=== PATIENT | female | born 1950 | race Caucasian/White ===

== ENCOUNTER → 2018-03-03 | Day surgery (SDC) | payer MEDICARE ==
[2018-02-27 13:28] LABS: BASOPHILS % 0.6 % (0.0-1.0); EOSINOPHILS # (AUTO) 0.5 (0.0-0.4); EOSINOPHILS % 7.7 % (0.0-6.0); HEMATOCRIT 38.7 % (34.2-44.1); HEMOGLOBIN 12.6 g/dL (12.0-16.0); LYMPHOCYTES % 28.2 % (18.0-39.1); MEAN CORPUSCULAR HEMOGLOBIN 26.3 pg (28-32); MEAN CORPUSCULAR HGB CONC 32.6 g/dL (31-35); MEAN CORPUSCULAR VOLUME 80.8 fL (81-99); MONOCYTES # (AUTO) 0.5 (0.2-0.8); MONOCYTES % 7.4 % (4.4-11.3); NEUTROPHILS # (AUTO) 3.9 (2.1-6.9); NEUTROPHILS % 55.5 % (38.7-80.0); PLATELET COUNT 269 x10e3/uL (140-360); RED BLOOD COUNT 4.79 x10e6/uL (3.6-5.1); RED CELL DISTRIBUTION WIDTH 14.5 % (11.7-14.4)
[~2018-03-03] MED LIST: FENTANYL CITRATE/PF 100MCG/2 ML INJ ONE; GLIMEPIRIDE2 MG PO; GLUCAGON FOR INJ 1 MG VIAL ONE; HYOSCYAMINE SULFATE 0.5 MG/ML AMP ONE; LEVOTHYROXINE100 MC1 PO; LIDOCAINE HCL 1% 2 ML AMP ONE; LOSARTAN POTAS100 MG PO; METFORMIN HCL500 MG PO; METOCLOPRAMIDE HCL 10 MG/2ML VIAL ONE; MIDAZOLAM HCL 2 MG/2 ML VIAL ONE; OMEPRAZOLE40 MG PO; PANTOPRAZOLE 40 MG 10ML VIAL ONE; PROPOFOL IV EMULSION 10 MG/ML 20 ML VIAL ONE; PROPOFOL IV EMULSION 10 MG/ML 50 ML VIAL ONE
[2018-03-03 18:50] LABS: WBC,FECAL (FECAL LACTOFERRIN) NEGATIVE (NEGATIVE)
[2018-03-04 13:59] LABS: C DIFFICILE TOXIN A&B AMP PROB NEGATIVE (NEGATIVE)
--- NOTE | 2018-03-23 09:19 | Operative Report ---
DATE OF PROCEDURE: March 03, 2018 REFERRING PHYSICIAN: Dr. Juno Ron PROCEDURES PERFORMED 1. Esophagogastroduodenoscopy with biopsies. 2. Colonoscopy with polypectomy and biopsies. INDICATIONS FOR EGD: Heartburn, excessive belching, history of melena. INDICATIONS FOR COLONOSCOPY: Colorectal cancer screening. Personal history of colon polyps, diarrhea. MEDICATION: Patient was done under MAC. Please see anesthesiologist's note. PROCEDURE: With the patient in the left lateral decubitus position, the flexible fiberoptic Olympus gastroscope was introduced into the esophagus under direct visualization without any difficulty. There was some patchy erythema noted in the distal esophagus. The scope was then advanced with ease into the stomach, traversing a large hiatal hernia. Mucosa overlying the antrum and the body revealed some patchy erythema and low-grade to moderate edema, and biopsies were obtained and sent to stain for H. pylori. Several hyperplastic-appearing polyps were noted in the body of the stomach. Some were partially excised with cold biopsy forceps. The pylorus was of normal contour and shape. It was intubated with ease, and the scope was advanced all the way to the 2nd portion of the duodenum. The scope was then withdrawn slowly, and the mucosa overlying the proximal 2nd portion of the duodenum grossly appeared to be within normal limits. Biopsies were obtained to rule out sprue considering the patient's history of diarrhea. Mucosa overlying the duodenal bulb appeared to be within normal limits. The scope was then withdrawn back into the stomach and retroflexed. Mucosa overlying the fundus appeared to be within normal limits. The previously described hiatal hernia was also noted in the retroflexed position. The scope was then straightened out. The stomach was decompressed. The scope was subsequently withdrawn. Patient tolerated the procedure well. IMPRESSION 1. Distal esophagitis, mild. 2. Large hiatal hernia. 3. Gastritis, biopsied. Biopsies sent to stain for H. pylori. 4. Gastric polyps, multiple, some partially excised with cold biopsy forceps. 5. Rule out sprue. PLAN: Follow up histology. Initiate Protonix 40 mg 1 p.o. q.a.m. a.c. The patient was then turned around. After adequate lubrication of the anal canal, a flexible fiberoptic Olympus colonoscope was inserted into the rectum with ease and advanced all the way to the cecum. The mucosa overlying the cecum appeared to be within normal limits. The ileocecal valve was intubated, and the scope was advanced into the terminal ileum. Biopsies were obtained. The scope was then withdrawn back into the colon. Diverticular disease was scattered throughout but was more prominent in the sigmoid colon. Two polyps were hot biopsied from the ascending colon. The transverse grossly appeared to be within normal limits. There were some mild, patchy, inflammatory changes noted in the left colon. Multiple random biopsies were obtained. One polyp was hot biopsied from the sigmoid colon, and 2 polyps were hot biopsied from the rectum. The scope was then retroflexed into the distal rectum. Large internal hemorrhoids were noted, none of which was actively bleeding. The scope was then straightened out. It was subsequently withdrawn after securing an adequate stool specimen that was sent for the appropriate stool studies. Patient tolerated the procedure well. IMPRESSION 1. Diverticulosis more prominent in the sigmoid colon. 2. Ascending colon polyps times 2, hot biopsied. 3. Mild, patchy, left-sided colitis. 4. Sigmoid colon polyp, hot biopsied. 5. Rectal polyps times 2, hot biopsied. 6. Internal hemorrhoids, none actively bleeding. PLAN: Follow up histology. Follow up stool studies. Initiate hydrocortisone 25-mg suppositories b.i.d. times 10 days, then p.r.n.. Start VSL #3 one p.o. daily and Bentyl 10 mg 1 p.o. t.i.d. Patient might benefit from a followup colonoscopy in 3 years. Job#: [id number] cc:JUNO RON MD
== END | disposition home or self-care (01) ==
LOC: OR 21:06
PROVIDERS: ATTEND Internal Medicine Gastroenterology
DX: K51.50 Left sided colitis without complications (principal); D12.2 Benign neoplasm of ascending colon; K62.1 Rectal polyp; K31.7 Polyp of stomach and duodenum; K29.50 Unspecified chronic gastritis without bleeding; K57.30 Diverticulosis of large intestine without perforation or abscess without bleeding; K64.8 Other hemorrhoids; K20.9 Esophagitis, unspecified; K44.9 Diaphragmatic hernia without obstruction or gangrene; E11.9 Type 2 diabetes mellitus without complications; E03.9 Hypothyroidism, unspecified; I10 Essential (primary) hypertension; Z01.810 Encounter for preprocedural cardiovascular examination; Z01.812 Encounter for preprocedural laboratory examination; Z79.84 Long term (current) use of oral hypoglycemic drugs; Z68.39 Body mass index [BMI] 39.0-39.9, adult; Z85.72 Personal history of non-Hodgkin lymphomas; Z90.49 Acquired absence of other specified parts of digestive tract
CPT/HCPCS: 36415 ×2; 43239; 45384; 82948; 83630; 83993; 85025; 87045; 87177; 87328; 87493; 88305; 88312; 93005; J1610; J1980; J2001; J2250; J2765; 45380

== ENCOUNTER → 2018-08-29 | Outpatient (CLI) | payer MEDICARE ==
[~2018-08-29] MED LIST changes: -FENTANYL CITRATE/PF 100MCG/2 ML INJ ONE; -GLUCAGON FOR INJ 1 MG VIAL ONE; -HYOSCYAMINE SULFATE 0.5 MG/ML AMP ONE; -LIDOCAINE HCL 1% 2 ML AMP ONE; -METOCLOPRAMIDE HCL 10 MG/2ML VIAL ONE; -MIDAZOLAM HCL 2 MG/2 ML VIAL ONE; -PANTOPRAZOLE 40 MG 10ML VIAL ONE; -PROPOFOL IV EMULSION 10 MG/ML 20 ML VIAL ONE; -PROPOFOL IV EMULSION 10 MG/ML 50 ML VIAL ONE
--- NOTE | 2018-08-29 13:45 | Diagnostic Imaging Report ---
EXAM: BONE MINERAL DENSITY HISTORY: Bone mineralization evaluation COMPARISON: None DISCUSSION: Evaluation of the left hip and lumbar spine was performed utilizing DEXA Hologic bone densitometer. The study is technically adequate. Left hip femoral neck bone mineral density: 0.85 g/cm2, T-score is 0.0, Z-score is 1.5. Left hip total bone mineral density: 0.98 g/cm2, T-score is 0.3, Z-score is 1.6. Lumbar spine total bone mineral density: 1.19 gm/cm2, T-score is 0.6, Z-score is 2.5. Impression: Bone mineralization by WHO Classification is normal, the fracture risk is not increased. Signed by: Dr. Jordin Hannon M.D. on 08/29/2018 1:42 PM
--- NOTE | 2018-09-01 16:23 | Diagnostic Imaging Report ---
#[id number] - [id number] #BILATERAL DIGITAL SCREENING MAMMOGRAM WITH CAD: 08/29/2018 CLINICAL: Routine screening. No prior exams were available for comparison. Current study contains 4 films. There are scattered fibroglandular elements in both breasts. Current study was also evaluated with a Computer Aided Detection (CAD) system. There are benign vascular calcifications and calcifications in both breasts. No significant masses, calcifications, or other findings are seen in either breast. IMPRESSION: BENIGN There is no mammographic evidence of malignancy. A 1 year screening mammogram is recommended. The patient will be notified by letter of the results. Tony rapp/lai:09/01/2018 10:05:48 Job Coach: Holley GARCIA)(M), [facility] letter sent: Normal Exam Mammogram BI-RADS: 2 Benign
== END ==
LOC: MAMMO 09:45
PROVIDERS: ATTEND Obstetrics & Gynecology Obstetrics
DX: Z12.31 Encounter for screening mammogram for malignant neoplasm of breast (principal); Z78.0 Asymptomatic menopausal state
CPT/HCPCS: 77067; 77080

== ENCOUNTER → 2019-11-02 | Outpatient (CLI) | payer MEDICARE | LOC: MAMMO 12:40 | PROVIDERS: ATTEND Family Medicine | DX: Z12.31 Encounter for screening mammogram for malignant neoplasm of breast (principal) | CPT/HCPCS: 77067 ==

== ENCOUNTER → 2019-11-13 | Outpatient (CLI) | payer MEDICARE ==
--- NOTE | 2019-11-13 15:42 | Diagnostic Imaging Report ---
TECHNIQUE: Magnetic resonance imaging of the RIGHT KNEE was performed WITHOUT injected contrast. HISTORY: Right knee pain COMPARISON: None available. FINDINGS: LIGAMENTS AND TENDONS: ACL: Intact PCL: Intact Collateral ligaments: Intact Iliotibial band: Unremarkable Popliteal tendon: Intact Extensor mechanism: Intact JOINT: Menisci: Medial: Degenerative signal in the posterior body Lateral: Degenerative signal in the anterior horn Articular Cartilage: Medial Compartment: Partial-thickness cartilage loss Lateral Compartment: Partial-thickness cartilage loss Patellofemoral Compartment: High-grade cartilage loss with areas of full-thickness erosion and subchondral edema/cystic change Joint Fluid: No significant joint effusion. Calcified bodies in the posterior recess of the knee. BONE: No focal or infiltrative bone marrow replacing abnormality. No acute fracture. SOFT TISSUES: Otherwise, unremarkable. IMPRESSION: Patellofemoral compartment predominant cartilage loss. Medial and lateral meniscus degeneration without discrete tear. Signed by: Dr. Jordin Hannon M.D. on 11/13/2019 3:39 PM
== END ==
LOC: MRI 14:14
PROVIDERS: ATTEND Family Medicine
DX: M25.561 Pain in right knee (principal)

== ENCOUNTER 2020-02-06 15:20 | Outpatient (RCR) | payer MEDICARE | END 2020-02-10 | LOC: PT 15:20 | PROVIDERS: ATTEND Specialist | DX: M17.11 Unilateral primary osteoarthritis, right knee (principal); M76.51 Patellar tendinitis, right knee; S83.241A Other tear of medial meniscus, current injury, right knee, initial encounter ==

== ENCOUNTER 2020-02-20 14:49 | Outpatient (RCR) | payer MEDICARE | END 2020-03-11 | LOC: PT 14:49 | PROVIDERS: ATTEND Specialist | DX: M17.11 Unilateral primary osteoarthritis, right knee (principal); M76.51 Patellar tendinitis, right knee; S83.241A Other tear of medial meniscus, current injury, right knee, initial encounter | CPT/HCPCS: 97139 ==

== ENCOUNTER → 2020-09-15 | Outpatient (CLI) | payer MEDICARE | LOC: RAD 15:16 | PROVIDERS: ATTEND Family Medicine | DX: J44.9 Chronic obstructive pulmonary disease, unspecified (principal); R59.0 Localized enlarged lymph nodes | CPT/HCPCS: 71046 ==

== ENCOUNTER → 2020-09-19 | Outpatient (CLI) | payer MEDICARE | LOC: US 12:44 | PROVIDERS: ATTEND Family Medicine | DX: R59.0 Localized enlarged lymph nodes (principal) | CPT/HCPCS: 76536 ==

== ENCOUNTER → 2020-10-16 | Outpatient (CLI) | payer MEDICARE ==
[~2020-10-16] MED LIST changes: +IOPAMIDOL 370 MG/ML 200 ML INFUS..BTL INJ ONE; +SODIUM CHLORIDE 0.9% 50ML 50 ML ONE
[2020-10-16 14:11] LABS: BLOOD UREA NITROGEN 9 mg/dL (7-26); BUN/CREATININE RATIO 12 (6-25); CREATININE, SERUM 0.76 mg/dL (0.57-1.11); EST GLOMERULAR FILTRATION RATE > 60 ML/MIN (60-)
== END ==
LOC: CT 13:31
PROVIDERS: ATTEND Internal Medicine Hematology & Oncology
DX: R59.9 Enlarged lymph nodes, unspecified (principal); Z85.79 Personal history of other malignant neoplasms of lymphoid, hematopoietic and related tissues
CPT/HCPCS: 36415; 70491; 82565; 84520; Q9967

== ENCOUNTER → 2020-11-05 | Outpatient (CLI) | payer MEDICARE ==
[2020-11-05 16:09] LABS: BLOOD UREA NITROGEN 11 mg/dL (7-26); BUN/CREATININE RATIO 13 (6-25); CREATININE, SERUM 0.83 mg/dL (0.57-1.11); EST GLOMERULAR FILTRATION RATE > 60 ML/MIN (60-)
== END ==
LOC: CT 15:27
PROVIDERS: ATTEND Internal Medicine Hematology & Oncology
DX: R59.9 Enlarged lymph nodes, unspecified (principal); R93.89 Abnormal findings on diagnostic imaging of other specified body structures
CPT/HCPCS: 36415; 71260; 82565; 84520; Q9967

== ENCOUNTER → 2020-11-25 | Outpatient (CLI) | payer MEDICARE ==
[~2020-11-25] MED LIST changes: -IOPAMIDOL 370 MG/ML 200 ML INFUS..BTL INJ ONE; -SODIUM CHLORIDE 0.9% 50ML 50 ML ONE
== END ==
LOC: MAMMO 12:45
PROVIDERS: ATTEND Family Medicine
DX: Z12.31 Encounter for screening mammogram for malignant neoplasm of breast (principal)
CPT/HCPCS: 77067

== ENCOUNTER → 2020-12-09 | Outpatient (CLI) | payer MEDICARE ==
[~2020-12-09] MED LIST changes: +IOPAMIDOL 370 MG/ML 200 ML INFUS..BTL INJ ONE; +SODIUM CHLORIDE 0.9% 50ML 50 ML ONE
[2020-12-09 12:10] LABS: BLOOD UREA NITROGEN 13 mg/dL (7-26); BUN/CREATININE RATIO 17 (6-25); CREATININE, SERUM 0.78 mg/dL (0.57-1.11); EST GLOMERULAR FILTRATION RATE > 60 ML/MIN (60-)
== END ==
LOC: CT 11:30
PROVIDERS: ATTEND Internal Medicine Critical Care Medicine
DX: R91.8 Other nonspecific abnormal finding of lung field (principal); J47.1 Bronchiectasis with (acute) exacerbation
CPT/HCPCS: 36415; 71260; 82565; 84520; Q9967

== ENCOUNTER → 2021-11-17 | Outpatient (CLI) | payer MEDICARE ==
[~2021-11-17] MED LIST changes: -IOPAMIDOL 370 MG/ML 200 ML INFUS..BTL INJ ONE; -SODIUM CHLORIDE 0.9% 50ML 50 ML ONE
== END ==
LOC: MAMMO 10:27
PROVIDERS: ATTEND Family Medicine
DX: Z12.31 Encounter for screening mammogram for malignant neoplasm of breast (principal)
CPT/HCPCS: 77067